=== PATIENT | male | born 1955 | race Caucasian/White ===

== ENCOUNTER 2019-10-16 21:48 | Inpatient (IN) ==
[2019-10-16 23:34] LABS: BASO# 0.04 X1000 (0.0-0.2); BASO% 0.4 % (0.0-0.8); EOS# 0.16 X1000 (0.0-0.7); EOS% 1.5 % (0.0-10.0); HEMATOCRIT 34.3 % (42.0-52.0); HEMOGLOBIN 10.6 g/dL (14.0-18.0); IMM GRAN# 0.05 X1000 (0.0-0.04); IMM GRAN% 0.5 % (0.0-0.5); LYMPH% 17.4 % (20.5-51.1); MCH 24.7 PG (27-31); MCHC 30.9 g/dL (33-37); MONO% 12.6 % (1.7-9.3); MPV 10.9 FL (7.4-10.4); NEUT% 67.6 % (42.2-75.2); PLT 268 X1000 (130-400); RBC 4.29 XMIL (4.7-6.1); RDW 14.5 % (11.5-14.5); WBC 10.35 X1000 (4.8-10.8)
[2019-10-16 23:55] LABS: ALB/GLOB RATIO 1.2; ALBUMIN 3.3 g/dL (3.5-5.0); CREATININE 1.4 mg/dL (0.7-1.2); POTASSIUM 3.1 mmol/L (3.5-5.1); TOTAL BILIRUBIN 0.39 mg/dL (0.20-1.00); TOTAL PROTEIN 6.1 g/dL (6.3-8.3)
[2019-10-17] MEDS ORDERED: CALCIUM GLUCONATE 1 GM in NS 50 ML IV ONE ×2 (00:15→05:35)
[2019-10-17] MEDS ORDERED: KLOR-CON PO ONE (00:33)
--- NOTE | 2019-10-17 01:29 | PROVIDER DOCUMENTATION ---
This chart was entered by Toma Clarke Scribe, acting as scribe for Lon Donis MD. HPI-General Adult - General Chief Complaint: Cough Stated Complaint: DOUBLE PNA(SEEN AT URGENT CARE) Time Seen by Provider: 10/16/19 21:51 Source: patient Allergies/Adverse Reactions: Patient Allergies Allergy/AdvReac Type Severity Reaction Status Date / Time Sulfa (Sulfonamide Allergy Unknown Verified 10/16/19 22:23 Antibiotics) Home Medications: Home Medication List Medication Instructions Recorded Confirmed Last Taken Type Amlodipine [Norvasc] 10 mg PO DAILY 10/16/19 10/16/19 Unknown History Carvedilol [Coreg] 12.5 mg PO BID 10/16/19 10/16/19 Unknown History Codeine Phosphate/Guaifenesin 5 - 10 ml PO PRN PRN 10/16/19 10/16/19 Unknown History [Virtussin AC Liquid] Gabapentin 300 mg PO TID 10/16/19 10/16/19 Unknown History Hydrochlorothiazide 25 mg PO DAILY 10/16/19 10/16/19 Unknown History Hydrocodone/Acetaminophen [Parmele 7.5 mg PO QHS 10/16/19 10/16/19 Unknown History 7.5-325 Tablet] Insulin Degludec [Tresiba 50 ml SUBQ BID 10/16/19 10/16/19 Unknown History Flextouch U-100] Insulin Lispro [Humalog] See Protocol SUBQ PRN PRN 10/16/19 10/16/19 Unknown History Levofloxacin 750 mg PO DAILY 10/16/19 10/16/19 Unknown History Levothyroxine [Synthroid] 137 mcg PO DAILY 10/16/19 10/16/19 Unknown History Losartan [Cozaar] 100 mg PO DAILY 10/16/19 10/16/19 Unknown History Methocarbamol [Robaxin] 500 mg PO DAILY 10/16/19 10/16/19 Unknown History Omeprazole 40 mg PO DAILY 10/16/19 10/16/19 Unknown History Saxagliptin HCl/Metformin HCl 1 tab PO DAILY 10/16/19 10/16/19 Unknown History [Kombiglyze Xr 5-1,000 mg Tab] Simvastatin 20 mg PO DAILY 10/16/19 10/16/19 Unknown History - History of Present Illness -Gen Adult Nature of Presenting Problems: 64 y/o male presents to ED with cough and fever onset 2 days ago. Pt reports he was seen at urgent care today, diagnosed with pneumonia bilaterally, given an antibiotic shot, and prescribed levofloxacin. Pt states he started taking the PO antibiotic today. Pt reports he was concerned because his cough worsened tonight and his temperature was higher than it has been. Pt states highes temp at home was 102. Pt is alert and oriented. Location of Pain/Injury: reports: none Pain Radiation: reports: no radiation Quality of Pain: reports: none Severity: reports: moderate Onset/Duration: reports: 2 days ago Timing: reports: still present Context/Activities at Onset: reports: none Modifying Factors: improves with: nothing Associated Symptoms: reports: cough, fever/chills Similar Symptoms Previously?: No Recently seen or treated by another doctor?: No Review of Systems - Adult - REVIEW OF SYSTEMS - ADULT Constitutional: reports: fever. denies: chills Eyes: reports: no symptoms reported Ears, Nose, Mouth & Throat: reports: no symptoms reported Cardiovascular: denies: chest pain, palpitations Respiratory: reports: cough. denies: shortness of breath Gastrointestinal: reports: no symptoms reported Genitourinary: reports: no symptoms reported Musculoskeletal: reports: no symptoms reported Integumentary: reports: no symptoms reported Neurological: reports: no symptoms reported Psychiatric: reports: no symptoms reported Endocrine: reports: no symptoms reported Hematologic/Lymphatic: reports: no symptoms reported Allergic/Immunologic: reports: no symptoms reported All Other Systems: Reviewed and Negative Past History - Adult - PAST MEDICAL HISTORY-ADULT Review of Records: reports: Old Records Reviewed, Nursing Assessment Review, Medications Reviewed Major Childhood Illnesses: reports: denies history Cardiovascular: reports: HTN, hyperlipidemia Gastrointestinal: reports: GERD, obstruction Musculoskeletal: reports: other (neuropathy) Endocrine/Immune: reports: Diabetes, thyroid disorder (hypo) - PRIOR SURGERIES/PROCEDURES Surgical/Procedure History: reports: EGD, colonoscopy, bowel surgery (SBO), orthopedic (extremity) (tendons in hands) - IMMUNIZATION STATUS Childhood Immunizations: See Nurse Assessment Flu Vaccine: See Nurse Assessment - FAMILY HISTORY Family History: reviewed, not pertinent - SOCIAL HISTORY Smoking: non-smoker Substance Use: none/never Alcohol Use Frequency: never Living Situation: family Physical Exam-General - PHYSICAL EXAM-ADULT Initial Vital Signs Reviewed: Yes - CONSTITUTIONAL General Appearance: appears well, alert, no apparent distress - EYES Eyes: PERRL/EOMI, pink conjunctivae - HEAD, EARS, NOSE, MOUTH & THROAT HENMT: normocephalic/atraumatic, moist mucous membranes, normal ENT inspection - NECK Neck: non-tender, full range of motion - RESPIRATORY Respiratory: chest non-tender, lungs clear, normal breath sounds - CARDIOVASCULAR Cardiovascular: normal peripheral pulses, regular rate, rhythm - GASTROINTESTINAL (ABDOMEN) Abdominal Exam: normal bowel sounds, non tender, soft - MUSCULOSKELETAL Back Exam: normal inspection, no CVA tenderness, no vertebral tenderness Extremity: normal range of motion, non-tender - SKIN Integumentary: normal color, warm/dry - NEUROLOGIC Neurologic: grossly normal - PSYCHIATRIC Psych/Mental Status: normal mood/affect, normal thought content, normal thought process, oriented x 3 Progress - PLAN OF CARE/RESULTS Progress/Plan/Lab Results: Vital Signs - 8 hr 10/16/19 21:51 Temperature 99.1 F Pulse Rate 82 Respiratory Rate 25 H Blood Pressure 166/79 O2 Sat by Pulse Oximetry 93 L Orders Category Date Time Status CHEST-2 VIEWS [RAD] Stat Exams 10/16/19 21:55 Taken BLOOD CULTURE [BLDCUL] Stat Lab 10/16/19 21:55 Uncollected CBC WITH ELECTRONIC DIFF [HEME] Stat Lab 10/16/19 21:55 Uncollected COMPREHENSIVE METABOLIC PANEL [CHEM] Stat Lab 10/16/19 21:55 Uncollected LACTATE, PLASMA [CHEM] Stat Lab 10/16/19 21:55 Uncollected PRO B-NATRIURETIC PEPTIDE Stat Lab 10/16/19 21:55 Uncollected TROPONIN T Stat Lab 10/16/19 21:55 Uncollected Laboratory Tests 10/16/19 10/16/19 10/16/19 22:54 22:54 22:54 WBC 10.35 RBC 4.29 L Hgb 10.6 L Hct 34.3 L MCV 80.0 L MCH 24.7 L MCHC 30.9 L RDW Std Deviation 14.5 Plt Count 268 MPV 10.9 H Immature Gran % (Auto) 0.5 Neut % (Auto) 67.6 Lymph % (Auto) 17.4 L Phelps % (Auto) 12.6 H Eos % (Auto) 1.5 Baso % (Auto) 0.4 Immature Gran # (Auto) 0.05 H Neut # (Auto) 7.00 H Lymph # (Auto) 1.80 Phelps # (Auto) 1.30 H Eos # (Auto) 0.16 Baso # (Auto) 0.04 Sodium 138 Potassium 3.1 L Chloride 92 L Carbon Dioxide 32 Anion Gap 14 BUN 17 Creatinine 1.4 H Estimated GFR/1.73 m2 51 BUN/Creatinine Ratio 12 Glucose 239 H Calculated Osmolality 285 Calcium 7.0 L* Total Bilirubin 0.39 AST 20 ALT 21 Alkaline Phosphatase 101 Troponin T Vkd-B-Gdxzkcfgnsa Pept Total Protein 6.1 L Albumin 3.3 L Globulin 2.8 Albumin/Globulin Ratio 1.2 Plasma Lactate 0.8 10/16/19 10/16/19 22:54 22:54 WBC RBC Hgb Hct MCV MCH MCHC RDW Std Deviation Plt Count MPV Immature Gran % (Auto) Neut % (Auto) Lymph % (Auto) Phelps % (Auto) Eos % (Auto) Baso % (Auto) Immature Gran # (Auto) Neut # (Auto) Lymph # (Auto) Phelps # (Auto) Eos # (Auto) Baso # (Auto) Sodium Potassium Chloride Carbon Dioxide Anion Gap BUN Creatinine Estimated GFR/1.73 m2 BUN/Creatinine Ratio Glucose Calculated Osmolality Calcium Total Bilirubin AST ALT Alkaline Phosphatase Troponin T 0.012 Fsv-E-Dgbyrrnyajo Pept 692 H Total Protein Albumin Globulin Albumin/Globulin Ratio Plasma Lactate Influenza A and B are negative. Result Diagrams: 10/16/19 22:54 10/16/19 22:54 - XRAY 1 XRAY Study: Chest Impression: See EMR Report - CT/MRI 1 CT Study: Angiogram (Chest) Impression: See EMR Report - CONSULTS/PCP/HOSPITALIST Notification #1 *Consult/PCP/Hospitalist*: Dr. Chavez Time Discussed: 01:06 Reason/Comments: Pneumonia, hypokalemia; hypocalcemia, elevated D dimer Consult Disposition: Admit (and order CTA chest) Departure - Departure Date of Disposition Decision: 10/17/19 Time of Disposition Decision: 01:08 DIAGNOSIS: Hypocalcemia, Hypokalemia, Elevated d-dimer, Lung nodule Pneumonia Qualifiers: Pneumonia type: due to unspecified organism Laterality: unspecified laterality Lung location: unspecified part of lung Qualified Code(s): J18.9 - Pneumonia, unspecified organism Disposition: ADMITTED INPATIENT 09 Certified Medical Emergency: Emergent Condition: Fair Referrals and Follow-Ups: Hussein Rand MD [Primary Care Provider] - - Critical Care Note This patient required my direct & personal management of CC.: No Attestation - Physician/ RICH Attestation Patient care was provided by Advanced Practice Provider:: No The physician spent face to face time with patient:: Yes Advanced Practice Provider documentation review:: Supervising physician onsite and consulted in the evaluation and care of this patient. The physician did have a face to face encounter with the patient. This chart was documented by the indicated scribe, (Toma Clarke Scribe) and accurately reflects the services I performed and decisions made by me, Lon Donis MD, as attested by the provider's signature.
[2019-10-17] MEDS ORDERED: NS 500 ML IV ONE (01:32)
[2019-10-17] MEDS ORDERED: ROCEPHIN 1 GM in NS 50 ML IV ONE (03:13)
[2019-10-17] MEDS ORDERED: ROBITUSSIN-AC PO PRN (06:17)
[2019-10-17] MEDS ORDERED: TYLENOL PO PRN (06:17)
[2019-10-17] MEDS ORDERED: NS 1,000 ML IV SCH ×2 (06:17→20:00)
[2019-10-17] MEDS: LEVAQUIN 750 MG/D5W 750 MG/150 ML IVPB IV SCH (06:47)
[2019-10-17] MEDS: HUMALOG SUBQ SCH ×4 (06:53→22:19)
[2019-10-17 07:41] LABS: HEMOGLOBIN A1C 10.2 % (4.8-6.0)
--- NOTE | 2019-10-17 07:57 | HISTORY AND PHYSICAL ---
CHIEF COMPLAINT: Pneumonia. HISTORY OF PRESENT ILLNESS: Mr. Melendez is a pleasant 64-year-old male who comes in to the emergency room after going to urgent care today and being diagnosed with pneumonia. He has bilateral lobe pneumonia. He was given Levaquin at the emergency room as well as an antibiotic shot. He was concerned because his cough worsened and his temperature was higher than it has been. He had a temperature max of 102 at home. He came in. Pneumonia was noted in bilateral lobes on his x-ray. He will be admitted for further evaluation and treatment. PAST MEDICAL HISTORY: Diabetes mellitus type 2 insulin dependent, hypertension, hyperlipidemia, hypothyroidism. PAST SURGICAL HISTORY: Trigger finger release on the right hand, bowel surgery as a child related to small bowel obstruction, colonoscopy and EGD. 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 No tobacco, alcohol or illicit drugs. FAMILY HISTORY: CVA and diabetes mellitus in first degree relatives. ALLERGIES: Sulfa antibiotics. HOME MEDICATIONS: Norvasc 10 mg p.o. daily, carvedilol 12.5 mg p.o. b.i.d., codeine phosphate and guaifenesin 5 to 10 mL p.o. p.r.n., Neurontin 300 mg p.o. t.i.d., hydrochlorothiazide 25 mg p.o. daily, [place] 7.5 p.o. nightly at bedtime, Tresiba 5000 units subcutaneously b.i.d., Humalog insulin sliding scale, Levaquin 750 p.o. daily, levothyroxine 137 mcg p.o. daily, losartan 100 mg p.o. daily, methocarbamol 500 mg p.o. daily, omeprazole 40 mg p.o. daily, Kombiglyze XR 02/1000 one p.o. daily, simvastatin 20 mg p.o. daily. REVIEW OF SYSTEMS: A 14-point review of systems was conducted with the patient, and pertinent positives listed above in the HPI. Other systems reviewed and found to be negative. PHYSICAL EXAMINATION: VITAL SIGNS: Temperature 99.1, pulse 82, respirations 23, blood pressure 166/79, oxygen saturation 95% on room air. GENERAL: A pleasant 64-year-old male sitting in the ER stretcher, answers all questions appropriately. He is alert and oriented x3. HEENT: Head is atraumatic and normocephalic. Pupils are equal, round and reactive to light. Extraocular eye movements intact. Sclerae anicteric. Conjunctivae pink. Oral mucosa is moist. NECK: Supple. No JVD. No thyromegaly. Trachea is midline. No cervical lymphadenopathy. CARDIAC: S1 and S2 appreciated. No murmurs, gallops or rubs. LUNGS: Clear to auscultation bilaterally. No rhonchi, wheezes or rales. Symmetric rise and fall with respirations. ABDOMEN: Protuberant, soft, nondistended, nontender. Bowel sounds present in all 4 quadrants, normoactive. No pulsatile mass. No organomegaly. EXTREMITIES: No cyanosis, clubbing or edema. There are 2+ pedal pulses bilaterally. GENITOURINARY: No bladder distention. The patient voids. Otherwise deferred. NEUROLOGICAL: Alert and oriented x3. No focal motor deficits. Otherwise nonfocal examination. DIAGNOSTIC DATA: Chest x-ray shows bilateral infiltrates. CTA of the chest ruled out pulmonary embolism. WBC is 10.35, hemoglobin 10.6, hematocrit 34.3, platelet count 268. Sodium is 138, potassium 3.1, chloride 92, carbon dioxide 32, BUN is 17, creatinine 1.4, glucose 239, calcium 7. ASSESSMENT: 1. Bilateral lobe community acquired pneumonia. We will start on Levaquin and Rocephin. DuoNebs q.6 hours. 2. Hypertension. 3. Hyperlipidemia. 4. Hypothyroidism. 5. Diabetes mellitus type 2. PLAN: Admit the patient to the Medical Floor. Restart home medications. Fingerstick blood sugars with sliding scale insulin. Blood cultures are pending. Continue to monitor. Hopefully the patient will be able to go home in a couple of days. Further recommendations based on the patient's clinical course. Dictated by KASEY Ferrari for Serg Chavez MD I have performed a face to face diagnostic evaluation. Labs/ xrays -reviewed. Exam- Chest- rhonchi- CV- regular. A/P- Pneumonia- Admit, check blood cultures, IV ABX. Dr. Chavez cc: KASEY Ferrari MD [facility]
[2019-10-17] MEDS: DUONEB (A & A) INH SCH ×3 (08:22→23:24)
--- NOTE | 2019-10-17 08:52 | Diag Imaging Result Doc PS360 ---
EXAM: CHEST-2 VIEWS INDICATION: pneumonia TECHNIQUE: 3 views COMPARISON: None. FINDINGS: There is an ill-defined airspace consolidation in the right lower lobe likely representing pneumonia. There is no discrete pleural fluid collection or pneumothorax. The cardiomediastinal silhouette and central vasculature are grossly unremarkable. IMPRESSION: Right lower lobe consolidation suggesting likely pneumonia. Electronically signed by Liam Razo 10/17/2019 8:50 AM
[2019-10-17] MEDS ORDERED: COZAAR PO SCH (09:00)
[2019-10-17] MEDS ORDERED: LEVAQUIN PO SCH (09:00)
[2019-10-17] MEDS ORDERED: INSULIN PEN NEEDLES ONE (09:54)
--- NOTE | 2019-10-17 09:59 | Diag Imaging Result Doc PS360 ---
EXAM: CT ANGIOGRM PULMONARY ARTERIES INDICATION: SOB, elevated d-dimer TECHNIQUE: This exam was performed using automated exposure control, adjustment of mA or kV according to patient size, and/or use of iterative reconstruction technique. Thin section axial images and 3-D MIPS were obtained. COMPARISON: None. FINDINGS: There is no evidence of pulmonary embolism. There is no evidence of aortic dissection or aneurysm. Heart is borderline prominent. There is an incidental large pericardial fat pad. There is extensive coronary artery calcification. There is mild to moderate mediastinal and right hilar lymphadenopathy, nonspecific but probably reactive. The largest lymph node is in the subcarinal region measuring 2.5 x 3.3 cm axially. There is a very dense airspace opacity in the right lower lobe. This probably represents severe lobar pneumonia. However, it is vaguely masslike measuring up to 6.0 x 5.4 cm axially. Underlying neoplasm cannot completely be excluded. Follow-up chest CT is recommended after treatment to assure resolution. There is another slightly nodular and much smaller focal opacity in the anterior segment of the right upper lobe on image 44 series 4 measuring approximately 1.3 cm axially that is probably a part of the same process. There is a trace effusion at the right lung base. There is no pneumothorax. Limited views of the upper abdomen reveals mild hepatic steatosis and a small cystic. Splenic lesion. IMPRESSION: 1.Dense opacity in the right lower lobe that probably represents severe lobar pneumonia. However, it is vaguely masslike. Underlying neoplasm cannot be excluded. Follow-up chest CT is recommended after treatment to assure resolution. 2.Second much smaller focal nodular opacity in the anterior segment of the right upper lobe. 3.Nonspecific mediastinal and right hilar lymphadenopathy, possibly reactive. 4.No evidence of pulmonary embolism. 5.Other incidental/nonacute findings detailed above. Electronically signed by Liam Razo 10/17/2019 9:57 AM
[2019-10-17] MEDS: TRESIBA FLEXTOUCH U-100 SUBQ SCH (10:45)
[2019-10-17] MEDS: ROBAXIN PO SCH ×2 (10:47→10:59)
[2019-10-17] MEDS: ZOCOR PO SCH (10:47)
[2019-10-17] MEDS: NORVASC PO SCH (10:47)
[2019-10-17] MEDS: SYNTHROID PO SCH (10:47)
[2019-10-17] MEDS: NEURONTIN PO SCH ×3 (10:47→22:18)
[2019-10-17] MEDS: HYDROCHLOROTHIAZIDE PO SCH (10:48)
[2019-10-17] MEDS: COREG PO SCH ×2 (10:48→22:18)
[2019-10-17] MEDS: PRILOSEC PO SCH (10:48)
--- NOTE | 2019-10-17 14:59 | PROGRESS NOTE ---
DATE: 10/17/2019 INTERVAL HISTORY: Mr. Melendez was admitted for right-sided upper lobe and lower lobe multifocal pneumonia. He did not have any other acute overnight events. SUBJECTIVE: Mr. Melendez is feeling much better than before. He denies any chest pain anymore. He denies that his cough is getting better. He denies his shortness of breath is better. He has not had any fever. Currently, he denies any active tobacco abuse, though he did have of a 1-pack per day history of smoking for 30 years, and he quit around year 1999. He denies any known personal history of cancer. OBJECTIVE: Vital Signs: Temperature 98.7 degrees, pulse 78, respiratory rate 16, blood pressure 150/70, saturating 96% on nasal cannula. General: Not in acute distress. HEENT: Oral cavity is moist. Neck: No cervical lymphadenopathy. Lungs: He had inspiratory crackles in right infrascapular region. Otherwise, no wheeze, rhonchi, or crackles. Cardiovascular: S1, S2 normal. Regular. No murmur or gallop. Abdomen: Obese, soft, nontender. Active bowel sounds. Extremities: Bilateral mild lower extremity edema. Neurologic: He is alert and oriented x3. LABORATORY DATA: Initially, he did not have leukocytosis. He has microcytic anemia, elevated D- dimer. He had elevated creatinine, for which repeat BMP has been ordered. He has had hypokalemia and hypocalcemia as well. MICROBIOLOGY: Influenza screen was negative. Blood cultures are pending. IMAGING: Pulmonary arteriogram performed had multifocal pneumonia affecting the right lung. ASSESSMENT AND PLAN: 1. Multifocal right lung pneumonia. On my review of CT scan, the patches of pneumonia indeed look like a mass. He also had right-sided hilar adenopathy. His pneumonia is about 6 x 6 cm. He also had a 1-pack a day history for 30 years, which he quit about 20 years ago. I reviewed the images with the patient and his at bedside. I will continue intravenous antibiotics. Follow up sputum culture, urine antigens. I discussed with them about the possibility of cancer, need for repeat CT scan after pneumonia gets treated, and outpatient Pulmonology followup. They understood it. 2. Microcytic hypochromic anemia. He states he had routine colonoscopy with about 5 to 6 polyps removed about 5 years ago. I would follow up with iron studies, and advised him to follow up with their regular silo painter, Dr. Omer, outpatient. 3. Others. Continue home amlodipine, carvedilol, hydrochlorothiazide, losartan for essential hypertension; insulin degludec and sliding scale insulin with history of insulin-dependent diabetes mellitus; [place], methocarbamol for history of chronic pain and peripheral neuropathy; simvastatin for hyperlipidemia. 4. Acute kidney injury, hypocalcemia, and hypokalemia on presentation. They were repleted. I will follow up with repeat electrolytes and kidney function. 5. Disposition. I will monitor the patient inside the hospital for another 24 to 48 hours as I await blood culture results. Plan of care discussed with the patient, and his questions have been answered. cc: Matt Barraza MD
[2019-10-17 15:03] LABS: CALCIUM 7.6 mg/dL (8.8-10.2); CREATININE 1.4 mg/dL (0.7-1.2); POTASSIUM 3.1 mmol/L (3.5-5.1)
[2019-10-17] MEDS: KLOR-CON PO SCH ×2 (16:29→22:18)
[2019-10-17] MEDS ORDERED: NORCO-7.5 PO SCH (21:00)
[2019-10-18] MEDS ORDERED: ROCEPHIN 1 GM in NS 50 ML IV SCH (03:00)
[2019-10-18] MEDS: DUONEB (A & A) INH SCH ×2 (03:58→08:48)
[2019-10-18] MEDS: HUMALOG SUBQ SCH ×2 (06:50→10:54)
[2019-10-18] MEDS: LEVAQUIN 750 MG/D5W 750 MG/150 ML IVPB IV SCH (06:50)
[2019-10-18] MEDS: SYNTHROID PO SCH (06:51)
[2019-10-18 07:33] LABS: BASO# 0.02 X1000 (0.0-0.2); BASO% 0.3 % (0.0-0.8); EOS% 2.7 % (0.0-10.0); HEMATOCRIT 33.4 % (42.0-52.0); HEMOGLOBIN 10.2 g/dL (14.0-18.0); IMM GRAN# 0.03 X1000 (0.0-0.04); IMM GRAN% 0.4 % (0.0-0.5); LYMPH# 1.92 X1000 (1.2-3.4); LYMPH% 25.8 % (20.5-51.1); MCH 24.6 PG (27-31); MCHC 30.5 g/dL (33-37); MCV 80.7 FL (81-99); MONO# 0.71 X1000 (0.11-0.59); MONO% 9.5 % (1.7-9.3); MPV 10.7 FL (7.4-10.4); NEUT# 4.56 X1000 (1.4-6.5); NEUT% 61.3 % (42.2-75.2); PLT 275 X1000 (130-400); RBC 4.14 XMIL (4.7-6.1); RDW 14.6 % (11.5-14.5); WBC 7.44 X1000 (4.8-10.8)
[2019-10-18 07:59] LABS: AGAP 14; BUN 13 mg/dL (8-22); CALCIUM 7.3 mg/dL (8.8-10.2); CHLORIDE 96 mmol/L (98-107); COSMO 284; CREATININE 1.2 mg/dL (0.7-1.2); ESTIMATED GFR > 60; GLUCOSE 148 mg/dL (70-104); POTASSIUM 3.2 mmol/L (3.5-5.1); SODIUM 141 mmol/L (136-145); TCO2 31 mmol/L (25-35); TOTAL IRON 25 ug/dL (53-167)
[2019-10-18 08:03] LABS: IRON SATURATION 14 %; TIBC 184 ug/dL; TOTAL IRON 26 ug/dL (53-167); UNBOUND IRON 158 ug/dL (112-346)
[2019-10-18] MEDS: COREG PO SCH (08:38)
[2019-10-18] MEDS: PRILOSEC PO SCH (08:38)
[2019-10-18] MEDS: NEURONTIN PO SCH (08:38)
[2019-10-18] MEDS: HYDROCHLOROTHIAZIDE PO SCH (08:39)
[2019-10-18] MEDS: ZOCOR PO SCH (08:39)
[2019-10-18] MEDS: NORVASC PO SCH (08:39)
[2019-10-18 11:15] VITALS: BP 134/78
[2019-10-18] MEDS: ROBAXIN PO SCH (11:24)
[2019-10-18] MEDS: TRESIBA FLEXTOUCH U-100 SUBQ SCH (11:24)
[2019-10-19] MEDS ORDERED: COZAAR PO SCH (09:00)
--- NOTE | 2019-10-19 11:47 | DISCHARGE SUMMARY ---
ADMISSION DATE: 10/16/2019 DISCHARGE DATE: 10/18/2019 AMA DISCHARGE DISPOSITION: The patient went home against medical advice. Apparently, patient wanted to go home since morning time and through the nurse I had conveyed to the patient that it could be a little later in the afternoon before I would be able to see him and the next thing I knew was patient had left against medical advice. He did not wait for me to examine him or write him any prescriptions or provide any detailed discharge instructions. DISCHARGE DIAGNOSES: 1. Multifocal right lung pneumonia. 2. Microcytic hypochromic anemia. 3. Right lung lesion suspicious of mass. 4. Acute kidney injury. 5. Hypocalcemia. 6. Hypokalemia. OTHER DIAGNOSES: 1. History of essential hypertension. 2. Insulin-dependent diabetes mellitus type 2. 3. Chronic pain. 4. Peripheral neuropathy. 5. Hyperlipidemia. DISCHARGE MEDICATIONS: I could not perform a proper reconciliation since the patient did not wait for the encounter with me. However, at home he was listed to be taking. 1. [place] 7.5 at nighttime. 2. Carvedilol 12.5 mg b.i.d. 3. Losartan 100 mg daily. 4. Gabapentin 300 mg t.i.d. 5. Insulin lispro sliding scale. 6. Hydrochlorothiazide 25 mg daily. 7. Metformin saxagliptin 1000 mg/5 mg tablet daily. 8. Amlodipine 10 mg daily. 9. Omeprazole 40 mg daily. 10. Methocarbamol 500 mg daily. 11. Simvastatin 20 mg daily. 12. Levothyroxine 137 mcg daily. 13. Insulin Degludec 50 mL subcutaneous b.i.d.. VITALS: At the time of discharge, temperature 98 degrees, pulse 71, respiratory rate 19, blood pressure 134/78, saturating 94% on 2 L nasal cannula. LABORATORIES: I could not perform significant labs during hospital admission and discharge. Hemoglobin 10.2, his mean corpuscular volume or MCV was 80. His platelet is 275,000. His potassium was 3.2. His BUN was 13, creatinine of 1.2. His blood glucose 175. His calcium was 7.3. SIGNIFICANT MICROBIOLOGY: His blood culture, influenza screen, and sputum culture so far have been negative. SIGNIFICANT IMAGING: Pulmonary arteriogram on 10/17/2019, had dense opacity in the right lower lobe which probably represents severe lobar pneumonia. However, it was vaguely masslike, underlying neoplasm could not be excluded. Followup chest CT after treatment of pneumonia was recommended; second much smaller focal nodular opacity in the anterior segment of the right upper lobe; nonspecific mediastinal and right hilar lymphadenopathy; no evidence of pulmonary embolism. HOSPITAL COURSE SUMMARY: Mr. Melendez is a 64-year-old man who had past medical history of about 1 pack a day smoking for about 30 years and he had quit smoking in around year 1999, multiple colonic polyps removed in 2013, insulin-dependent diabetes mellitus, hypertension, who came in with chief complaints of shortness of breath, cough, and fever of 2 days duration. In the emergency room, he was found to have temperature of 98.4 degrees, pulse of 82, blood pressure 166/79, and oxygen saturation of 93%. He was started on oral antibiotic therapy outpatient. However, he continued to have fever outpatient, so hospitalist team was consulted for further management for failed outpatient therapy. He was admitted and was started on intravenous ceftriaxone and levofloxacin and chest CT was performed. With intravenous antibiotics he had clinically improved. However, chest CT was concerning for masslike lesions in his right side of the lung. I had a detailed discussion with him and his at bedside about the probability of cancer. I had discussed with them on my first day of encounter with him the possibility of cancer. I had discussed with them that after treatment completion for his pneumonia, he would need a repeat CT scan and a pulmonology and possibly oncology followup if the mass would persist. They had understood it. However, the next day before I could see the patient he had left against medical advice. The circumstances were not entirely known, but according to the report given to me by the nurse, he was just restless to be in the hospital and he wanted to go home. I could not prescribe him any medications, provide him a CT scan prescription or a pulmonology followup. TIME SPENT: 10 minutes of time was spent in taking care of this patient. cc: MD BALDEMAR Cole
== END 2019-10-18 14:53 | disposition left against medical advice (07) | DRG 195 ==
LOC: ED 21:48 → SUATTDRO 10-17 06:01 → 3N 10-17 06:01
PROVIDERS: ATTEND Internal Medicine